=== PATIENT | female | born 1970 | race Caucasian/White ===

== ENCOUNTER → 2023-06-23 09:34 | Outpatient (BNVA) | payer MEDICAID, SELFPAY | PROVIDERS: Family Provider Nurse Practitioner Family; PCP Registered Nurse; Visit Provider Registered Nurse | DX: F41.9 Anxiety disorder, unspecified (principal); Z13.6 Encounter for screening for cardiovascular disorders | CPT/HCPCS: 80053; 80061; 82607; 84443; 85025 ==

== ENCOUNTER → 2023-07-14 09:32 | Outpatient (BNVA) | payer MEDICAID, SELFPAY | PROVIDERS: Family Provider Nurse Practitioner Family; PCP Registered Nurse; Visit Provider Registered Nurse | DX: Z01.419 Encounter for gynecological examination (general) (routine) without abnormal findings (principal) | CPT/HCPCS: 87624 ==

== ENCOUNTER 2023-07-23 10:06 | Day surgery (SDC) | payer MEDICAID, SELFPAY ==
[2023-07-23 10:18] VITALS: BP 154/84; PULSE 74; RESP 18; TEMP 36.5; O2SAT 96; BMI 28.5
[2023-07-23] MEDS: sodium chloride 0.9% 1,000 ML 30 ML IV (10:36)
--- NOTE | 2023-07-23 11:05 | P.ANESASSM_ITS ---
Pre-Anesthetic Assessment Height/Weight: Height 1.57 m Weight 70.76 kg Temp Pulse Resp BP Pulse Ox O2 Del Method 97.7 F 74 18 154/84 96 Room Air 07/23/23 10:18 07/23/23 10:18 07/23/23 10:18 07/23/23 10:18 07/23/23 10:18 07/23/23 10:18 Preop Diagnosis: Screening Operation Date: 07/23/23 11:00 Proposed Procedures p 68153 colonoscopy G0121 screen colon a risk Z12.11(Not Applicable) - Reji Cho DO Familial anesthetic complications: None Was Beta Linden taken within 24 hours: N/A Was Clonidine taken within 24 hours: N/A Last intake: Intake Last Liquid Date 07/22/23 Last Liquid Time 20:00 Last Solid Date 07/21/23 Last Solid Time 19:00 Social Alcohol (Social) and No tobacco (Marijuana daily) Exam alert, oriented x 3, clear to auscultation bilaterally and regular rate & rhythm Airway Submandibular: within normal limits Cervical ROM: within normal limits Mallampati: Class III Dentition: chipped History/ROS No significant history except as noted and No significant complaints Pulmonary Asthma, Cough and Sleep Apnea (No CPAP) CV/HEM None reported None reported Hepatic None reported GI Gastroesophageal Reflux Disease (None this am, food related) Metabolic None reported Musc/skel Lower Back Pain and Osteoarthritis/DJD Neuropsych Anxiety and Seizure (10 years, no issues since then. Only one she's ever had. Medication related) Anesthetic Plan ASA status: 2 Risk of > 500 ml blood loss (7ml/kg in children): No Medications/Allergies Home Medications Medication Instructions Recorded Confirmed Last Taken Type Ventolin HFA 90 mcg/actuation 1 inh inhalation QID 30 days #18 06/12/23 07/23/23 07/23/23 Rx aerosol inhaler (albuterol sulfate) grams budesonide-formoterol HFA 160 1 inh inhalation BID #10.2 grams 06/16/23 07/23/23 07/23/23 Rx mcg-4.5 mcg/actuation aerosol inhaler (Symbicort) Allergies Allergy/AdvReac Type Severity Reaction Status Date / Time No Known Allergies Allergy Verified 07/14/23 09:09 Current Medications Generic Name Dose Route Start Last Admin Trade Name Freq PRN Reason Stop Dose Admin Sodium Chloride 1,000 mls @ 30 mls/hr 07/23/23 06:30 07/23/23 10:36 Sodium Chloride 0.9% IV 07/24/23 06:29 30 mls/hr .Q24H MARCELLE Administration PFSH Anesthesia Medical History Asthma Surgical History Hx of tubal ligation Family History Mother Cancer Father Cancer Social History Smoking and tobacco/nicotine status: current every day tobacco/nicotine user e- cigarettes E-Cigarette Details: vaporizer device Alcohol intake: current Alcohol intake frequency: holidays/special occasions only Substance/Drug Use: current Data Anesthesia Cardiac Studies: No Data to Display
--- NOTE | 2023-07-23 11:42 | W.PM.OPSUD ---
Surgery/Procedure H&P Update DATE OF PROCEDURE: July 23, 2023 DATE H&P PERFORMED: 06/30/23 H&P UPDATE INFORMATION: I have reviewed H&P completed within last 30 days, I have examined patient prior to procedure and No changes to prior documentation PREOP DIAGNOSIS: Screening PLANNED PROCEDURE: Operation Date: 07/23/23 11:00 Proposed Procedures p 68808 colonoscopy G0121 screen colon a risk Z12.11(Not Applicable) - Reji Cho, DO
[2023-07-23 11:59] VITALS: BP 150/86; PULSE 70; RESP 18; TEMP 36.3; O2SAT 97
[2023-07-23 12:11] VITALS: BP 132/81; PULSE 64; RESP 18; O2SAT 98
--- NOTE | 2023-07-23 15:00 | ANE.PACU2 ---
Inpatient post-anesthesia follow up: Vital signs: Temperature 97.4 F Pulse Rate 64 Respiratory Rate 18 Blood Pressure 132/81 Pulse Oximetry 98 Oxygen Delivery Me thod Room Air Oxygen Flow Rate Fraction of Inspir ed Oxygen Hydration adequate: Yes Nausea and vomiting: No Mental status: Baseline Additional Comments: no apparent anesthetic complications noted
== END 2023-07-23 12:28 | disposition home or self-care (01) ==
PROVIDERS: PCP Registered Nurse; Visit Provider Surgery
PROC: 0DJD8ZZ Inspection of Lower Intestinal Tract, Via Natural or Artificial Opening Endoscopic (ICD-10-PCS; CPT 45378; principal; 2023-07-23 11:00)
DX: Z12.11 Encounter for screening for malignant neoplasm of colon (principal); D12.5 Benign neoplasm of sigmoid colon; G47.30 Sleep apnea, unspecified; K21.9 Gastro-esophageal reflux disease without esophagitis; J45.909 Unspecified asthma, uncomplicated; F17.200 Nicotine dependence, unspecified, uncomplicated
CPT/HCPCS: 45385; 88305; J2704; J7030

== ENCOUNTER 2023-07-31 14:21 | Outpatient (CLI) | payer MEDICAID, SELFPAY ==
--- NOTE | 2023-07-31 15:00 | MM_ITS ---
WS: [id number] SCREENING DIGITAL TOMOSYNTHESIS MAMMOGRAM WITH CAD HISTORY: Z12.31 - Encounter for other screening for malignant neop... COMPARISON: None available. Bilateral CC and MLO with tomosynthesis views submitted. Synthetic mammography reviewed. Computer aid ed detection analyzed. Breast composition: The breasts are almost entirely fatty. No suspicious masses, microcalcifications or architectural distortion. IMPRESSION: MM/[place] [id number] BI-RADS: 1-Negative FOLLOW UP: 1 Year Follow-up
== END 2023-07-31 14:22 | disposition home or self-care (01) ==
LOC: MOBLMAM 14:23
PROVIDERS: PCP Registered Nurse; Visit Provider Registered Nurse
DX: Z12.31 Encounter for screening mammogram for malignant neoplasm of breast (principal)
CPT/HCPCS: 77063; 77067

== ENCOUNTER 2024-08-25 12:35 | Outpatient (CLI) | payer MEDICAID, SELFPAY ==
--- NOTE | 2024-08-25 12:40 | MM_ITS ---
WS: [id number] BILATERAL 3D TOMOSYNTHESIS DIGITAL SCREENING MAMMOGRAPHY WITH CAD CLINICAL INFORMATION: SCREENING HISTORY: Screening mammogram. No current complaints. COMPARISON: 2023 TECHNIQUE: Bilateral CC and MLO views. FINDINGS: Scattered fibroglandular densities bilaterally. No suspicious focal mass, asymmetry, calcifications, or architectural distortion. No evidence of malignancy. MM/MM scr BI tomosynthesis [id number] IMPRESSION: DENSITY: There are scattered areas of fibroglandular density. BI-RADS: 1 - Negative. FOLLOW UP: 1 Year Follow-up Recommend return to annual screening mammography.
== END 2024-08-25 12:36 | disposition home or self-care (01) ==
LOC: MOBLMAM 12:42
PROVIDERS: PCP Registered Nurse; Visit Provider Registered Nurse
DX: Z12.31 Encounter for screening mammogram for malignant neoplasm of breast (principal); R92.323 Mammographic fibroglandular density, bilateral breasts
CPT/HCPCS: 77063; 77067

== ENCOUNTER → 2025-04-04 15:18 | Outpatient (BNVA) | payer MEDICAID, SELFPAY | PROVIDERS: PCP Registered Nurse; Referring Provider Registered Nurse; Visit Provider Anesthesiology Pain Medicine | DX: M54.50 Low back pain, unspecified (principal); M51.369 Other intervertebral disc degeneration, lumbar region without mention of lumbar back pain or lower extremity pain | CPT/HCPCS: 72110 ==

== ENCOUNTER → 2025-04-25 10:58 | Outpatient (BNVA) | payer MEDICAID, SELFPAY | PROVIDERS: PCP Registered Nurse; Visit Provider Registered Nurse | DX: Z79.899 Other long term (current) drug therapy (principal) | CPT/HCPCS: 80053 ==

== ENCOUNTER → 2025-05-04 08:07 | Outpatient (BNVA) | payer MEDICAID, SELFPAY | PROVIDERS: PCP Registered Nurse; Visit Provider Registered Nurse | DX: M19.90 Unspecified osteoarthritis, unspecified site (principal) | CPT/HCPCS: 80053; 85651; 86140; 86431 ==